=== PATIENT | male | born 1985 | race Caucasian/White ===

== ENCOUNTER 2018-03-26 06:22 | Emergency (ER) | payer SELFPAY ==
--- NOTE | 2018-03-26 06:27 | EDM.PDOC ---
<Alex Adair - Last Filed: 03/26/18 06:48> ED HPI GENERAL MEDICAL PROBLEM - General Chief Complaint: Genitourinary Problem Stated Complaint: SWOLLEN TESTICLE Time Seen by Provider: 03/26/18 06:23 Source of Information: Reports: Patient History Limitations: Reports: No Limitations - History of Present Illness INITIAL COMMENTS - FREE TEXT/NARRATIVE: HISTORY AND PHYSICAL: History of present illness: 32-year-old male presenting to emergency department with chief complaint of right testicular pain starting yesterday. Patient states that yesterday at work he noticed some right testicular pain. He then woke up this morning and noticed that his right testicle was more painful and swollen. States that the pain is currently 8 out of 10. He denies any penile drainage. Does have some dysuria but no hematuria or urgency. Denies any history of STD. He currently has been in a monogamous relationship for the past 4 months. Does admit to unprotected sex. In discussion, I did give him the option of full STD testing which he would like at this time. On exam the right testicular is enlarged and painful. There is mild right-sided inguinal lymphadenopathy. No penile drainage. Review of systems: As per history of present illness and below otherwise all systems reviewed and negative. Past medical history: As per history of present illness and as reviewed below otherwise noncontributory. Surgical history: As per history of present illness and as reviewed below otherwise noncontributory. Social history: No reported history of drug or alcohol abuse. Family history: As per history of present illness and as reviewed below otherwise noncontributory. Physical exam: HEENT: Atraumatic, normocephalic, pupils reactive, negative for conjunctival pallor or scleral icterus, mucous membranes moist, throat clear, neck supple, nontender, trachea midline. Lungs: Clear to auscultation, breath sounds equal bilaterally, chest nontender. Heart: S1S2, regular, negative for clicks, rubs, or JVD. Abdomen: Soft, nondistended, nontender. Negative for masses or hepatosplenomegaly. Negative for costovertebral tenderness. Pelvis: Stable nontender. Genitourinary: See above H&P Rectal: Deferred. Extremities: Atraumatic, negative for cords or calf pain. Neurovascular unremarkable. Neuro: Awake, alert, oriented. Cranial nerves II through XII unremarkable. Cerebellum unremarkable. Motor and sensory unremarkable throughout. Exam nonfocal. Diagnostics: Chlamydia, gonorrhea, HIV, RPR, HSV Therapeutics: [] Impression: Right testicular pain and swelling Plan: [] Definitive disposition and diagnosis as appropriate pending reevaluation and review of above. right testicle Pain Score (Numeric/FACES): 7 - Related Data Allergies Allergy/AdvReac Type Severity Reaction Status Date / Time iodine Allergy Hives Verified 03/26/18 06:33 Home Meds: Home Meds Ciprofloxacin HCl [Cipro] 500 mg PO BID #20 tablet 03/26/18 [Rx] Course - Vital Signs Last Recorded V/S: Last Vital Signs Temp 98.3 F 03/26/18 07:27 Pulse 106 H 03/26/18 07:27 Resp 14 03/26/18 07:27 BP 143/85 H 03/26/18 07:27 Pulse Ox 96 03/26/18 07:27 - Orders/Labs/Meds Orders: Active Orders 24 hr Category Date Time Status Scrotal Duplex Ltd [US] Routine Exams 03/26/18 Taken Testicular US [Scrotum and Contents] [US] Stat Exams 03/26/18 06:45 Taken CHLAMYDIA AND GONORRHEA BY TMA Stat Lab 03/26/18 06:38 Received CULTURE URINE [RM] Stat Lab 03/26/18 06:38 Received HSV TYPE SPECIFIC IMMUNOBLOT [REF] Stat Lab 03/26/18 06:54 Received RPR [REF] Stat Lab 03/26/18 06:54 Received Labs: Laboratory Tests 03/26/18 03/26/18 Range/Units 06:38 06:54 Urine Color YELLOW Urine Appearance SLT CLOUDY Urine pH 6.0 (5.0-8.0) Ur Specific [place] >= 1.030 (1.001-1.035) Urine Protein 30 (NEGATIVE) mg/dL Urine Glucose (UA) NEGATIVE (NEGATIVE) mg/dL Urine Ketones NEGATIVE (NEGATIVE) mg/dL Urine Occult Blood MODERATE (NEGATIVE) Urine Nitrite NEGATIVE (NEGATIVE) Urine Bilirubin NEGATIVE (NEGATIVE) Urine Urobilinogen 0.2 (<2.0) EU/dL Ur Leukocyte Esterase SMALL (NEGATIVE) Urine RBC 15-20 (0-2/HPF) Urine WBC 55-75 (0-5/HPF) Ur Epithelial Cells RARE (NONE-FEW) Urine Bacteria 1+ H (NEGATIVE) Urine Mucus LIGHT (NONE-MOD) HIV 1&2 Ag/Ab, 4th Gen 0.1 (<1.0) Meds: Medications Discontinued Medications Generic Name Dose Route Start Last Admin Trade Name Lorri PRN Reason Stop Dose Admin Ceftriaxone Sodium 1,000 mg/ 2.1 mls @ 2.1 mls/sec 03/26/18 08:07 Lidocaine HCl IM 03/26/18 08:08 ONETIME ONE Departure - Departure Disposition: Home, Self-Care 01 Clinical Impression: Epididymitis, right - Discharge Information Prescriptions: Ciprofloxacin HCl [Cipro] 500 mg PO BID #20 tablet Referrals: PCP,None [Primary Care Provider] - Forms: ED Department Discharge Additional Instructions: The following information is given to patients seen in the emergency department who are being discharged to home. This information is to outline your options for follow-up care. We provide all patients seen in our emergency department with a follow-up referral. The need for follow-up, as well as the timing and circumstances, are variable depending upon the specifics of your emergency department visit. If you don't have a primary care physician on staff, we will provide you with a referral. We always advise you to contact your personal physician following an emergency department visit to inform them of the circumstance of the visit and for follow-up with them and/or the need for any referrals to a consulting specialist. The emergency department will also refer you to a specialist when appropriate. This referral assures that you have the opportunity for follow-up care with a specialist. All of these measure are taken in an effort to provide you with optimal care, which includes your follow-up. Under all circumstances we always encourage you to contact your private physician who remains a resource for coordinating your care. When calling for follow-up care, please make the office aware that this follow-up is from your recent emergency room visit. If for any reason you are refused follow-up, please contact the [facility] at and asked to speak to the emergency department charge nurse. Take meds as directed follow-up with primary care return if symptoms worsen or change. [facility] [address] [place] [id number] <Romy Bennett - Last Filed: 03/26/18 08:20> ED HPI GENERAL MEDICAL PROBLEM - History of Present Illness INITIAL COMMENTS - FREE TEXT/NARRATIVE: Patient was signed out to me by Dr. Adair to check ultrasound and lab results. Patient's UA shows large amount of WBCs and RBCs, negative for nitrites or leuk esterase. HIV testing was negative, ultrasound shows enlarged hypervascular right-sided epididymis suggesting epididymitis. Patient is given 1 g Rocephin here in the ED and will be discharged on Cipro. ED ROS GENERAL - Review of Systems Review Of Systems: ROS reveals no pertinent complaints other than HPI. ED EXAM, GENERAL - Physical Exam Exam: See Below (See history of present illness) Course - Orders/Labs/Meds Meds: Medications Discontinued Medications Generic Name Dose Route Start Last Admin Trade Name Freq PRN Reason Stop Dose Admin Ceftriaxone Sodium 1,000 mg/ 2.1 mls @ 2.1 mls/sec 03/26/18 08:07 Lidocaine HCl IM 03/26/18 08:08 ONETIME ONE Departure - Departure Time of Disposition: 08:18 Condition: Good - Discharge Information *PRESCRIPTION DRUG MONITORING PROGRAM REVIEWED*: No *COPY OF PRESCRIPTION DRUG MONITORING REPORT IN PATIENT HARESH: No
--- NOTE | 2018-03-26 11:36 | US ---
EXAM DATE: 03/26/18 PATIENT'S AGE: 32 Patient: DAQUAN PEACE Facility: [place], [place] Site . Site : 1985 Study: US Testicle [id number]/3/2018 7:54:07 AM Ordering Physician: Giovany Johnson Final Report: HISTORY: Right testicular pain and swelling for 2 days. TECHNIQUE: Scrotal ultrasound. COMPARISON: No prior. FINDINGS: Right testicle measures 3.7 x 2.8 x 2.2 cm in size. Right testicle demonstrates normal echogenicity with normal internal blood flow. Right epididymis is enlarged and heterogeneous appearance with hypervascularity. This suggests changes of epididymitis. There is a small amount of right hemiscrotal fluid. No right-sided varicocele. - Left testicle measures 3.7 x 2.6 x 1.7 cm in size. Left testicle demonstrates normal echogenicity with normal internal blood flow. Left epididymis is unremarkable. No left-sided hydrocele or varicocele. IMPRESSION: 1. Enlarged hypervascular right-sided epididymis suggesting epididymitis. 2. Small amount of right hemiscrotal fluid, likely reactive. 3. Normal testicles bilaterally. No testicular mass or torsion. Dictated by Jc Aguilar MD @ 03/26/2018 8:06:42 AM Dictated by: Jc Aguilar MD @ 03/26/2018 08:06:45 (Electronic Signature) Report Signed by Proxy. YURIDIA
--- NOTE | 2018-03-26 11:37 | US ---
EXAM DATE: 03/26/18 PATIENT'S AGE: 32 Patient: DAQUAN PEACE Facility: [place], [place] Site . Site : 1985 Study: US Testicle [id number]/3/2018 7:54:07 AM Ordering Physician: Giovany Johnson Final Report: HISTORY: Right testicular pain and swelling for 2 days. TECHNIQUE: Scrotal ultrasound. COMPARISON: No prior. FINDINGS: Right testicle measures 3.7 x 2.8 x 2.2 cm in size. Right testicle demonstrates normal echogenicity with normal internal blood flow. Right epididymis is enlarged and heterogeneous appearance with hypervascularity. This suggests changes of epididymitis. There is a small amount of right hemiscrotal fluid. No right-sided varicocele. - Left testicle measures 3.7 x 2.6 x 1.7 cm in size. Left testicle demonstrates normal echogenicity with normal internal blood flow. Left epididymis is unremarkable. No left-sided hydrocele or varicocele. IMPRESSION: 1. Enlarged hypervascular right-sided epididymis suggesting epididymitis. 2. Small amount of right hemiscrotal fluid, likely reactive. 3. Normal testicles bilaterally. No testicular mass or torsion. Dictated by Jc Aguilar MD @ 03/26/2018 8:06:42 AM Dictated by: Jc Aguilar MD @ 03/26/2018 08:06:45 (Electronic Signature) Report Signed by Proxy. YURIDIA
== END 2018-03-26 08:56 | disposition home or self-care (01) ==
LOC: MW.ED 06:22
DX: N45.1 Epididymitis (principal); Z91.048 Other nonmedicinal substance allergy status
CPT/HCPCS: 76870; 81001; 84181; 86592; 87086; 87389; 87491; 87591; 93976; 96372; 99284; J0696

== ENCOUNTER 2022-04-17 10:31 | Emergency (ER) | payer MEDICAID | END 2022-04-17 11:15 | LOC: MW.ED 10:31 | DX: Z02.89 Encounter for other administrative examinations (principal); Z76.0 Encounter for issue of repeat prescription; Z91.041 Radiographic dye allergy status | CPT/HCPCS: 99283 ==